=== PATIENT | male | born 1985 | race Caucasian/White ===

== ENCOUNTER 2019-09-25 18:00 | Outpatient (CLI) | payer OTHER | END 2019-09-25 18:01 | disposition home or self-care (01) | LOC: SLEEPLAB 18:00 | PROVIDERS: ATTEND Otolaryngology Plastic Surgery within the Head & Neck | DX: G47.33 Obstructive sleep apnea (adult) (pediatric) (principal); R06.83 Snoring | CPT/HCPCS: 95801 ==

== ENCOUNTER 2019-11-29 06:59 | Day surgery (SDC) | payer OTHER ==
[2019-11-24 13:36] VITALS: BMI 28.1
[2019-11-29] MEDS ORDERED: AFRIN NASAL MIST 15 ML BOT ONE ×3 (07:59→10:15)
[2019-11-29] MEDS ORDERED: Lidocaine 1% w/Epinephrine 1:100K 20 ML VIAL ONE (08:38)
[2019-11-29] MEDS ORDERED: Bacitracin Zinc Ointment 30 gm TUBE ONE (08:38)
[2019-11-29] MEDS ORDERED: Midazolam HCl 2 mg/2 ml Vial ONE (08:39)
[2019-11-29] MEDS ORDERED: HYDROmorphone 0.5 MG/0.5 ML SYRINGE ONE (08:39)
[2019-11-29] MEDS ORDERED: Fentanyl 100 MCG/2 ML VIAL ONE ×2 (08:39→10:40)
[2019-11-29] MEDS ORDERED: methylPREDNISolone Acetate 40 mg/ml Vial ONE (09:26)
[2019-11-29] MEDS ORDERED: Ondansetron PF 4 MG/2 ML Vial ONE (09:54)
[2019-11-29] MEDS ORDERED: Lidocaine 1% PF 5 ML VIAL ONE (09:54)
[2019-11-29] MEDS ORDERED: Dexamethasone 20 MG/5 ML VIAL ONE (09:54)
[2019-11-29] MEDS ORDERED: PROPOFOL 200 MG/20 ML VIAL ONE (09:54)
[2019-11-29] MEDS ORDERED: hydrALAZINE 20 MG/ML VIAL ONE (11:22)
[2019-11-29] MEDS ORDERED: Morphine 2 MG/ML VIAL ONE ×2 (12:52→13:11)
[2019-11-29] MEDS ORDERED: Hydrocodone-Acetamin 15 ML UDCUP ONE (13:30)
--- NOTE | 2019-11-30 08:48 | OP ---
DATE OF PROCEDURE: 11/29/2019 PREOPERATIVE DIAGNOSES: 1. Chronic rhinosinusitis. 2. Nasal polyposis. 3. Nasal septal deviation. 4. Bilateral inferior turbinate hypertrophy. 5. Nasal obstruction. 6. Chronic adenotonsillitis. 7. Adenotonsillar hypertrophy. 8. Uvula hypertrophy. 9. Witnessed apnea. PROCEDURES PERFORMED: 1. Bilateral endoscopic sinus surgery, total ethmoidectomies and sphenoidotomies with removal of tissue. 2. Bilateral endoscopic sinus surgery, maxillary antrostomies with removal of tissue. 3. Right endoscopic sinus surgery, frontal sinus exploration with removal of tissue. 4. Nasal septoplasty. 5. Bilateral inferior turbinate submucosal resection. 6. Tonsillectomy and adenoidectomy. 7. Uvulectomy. ESTIMATED BLOOD LOSS: 20 mL. COMPLICATIONS: None. ANESTHESIA: GETA. DESCRIPTION OF PROCEDURE: TONSILLECTOMY AND ADENOIDECTOMY: After consent was obtained, the patient was identified, brought to the operating room, and placed on the operating table in the supine position. General endotracheal anesthesia and intravenous access were obtained and we proceeded with positioning the patient for oropharyngeal surgery. Oropharyngeal exposure was obtained with a Robbie-Evans mouth gag after a head drape was placed and secured with a towel clip. The Robbie-Evans mouth gag was then suspended from the Madden tray and palatal elevation was achieved with a red rubber catheter. The right tonsil was addressed first. We used a curved Allis to grasp the tonsil and retract it medially as an anterior pillar incision was made. The retrotonsillar fascial plane was then established and blunt dissection was performed with the suction cautery. Blood vessels were anticipated, identified, and cauterized as they were encountered. Ultimately, dissection was carried to the posterior tonsillar pillar mucosa which was incised hemostatically, as well as the base of tongue connection. The tonsil was then passed off as a specimen and bleeding points within the tonsillar bed were cauterized under direct visualization. We subsequently turned our attention to the contralateral side, where using a similar technique, a near identical procedure was performed. Again, the tonsil was grasped and retracted medially with a curved Allis. The retrotonsillar fascial plane was established and while the anterior pillar was retracted medially. The hemostatic blunt dissection of the tonsil with a suction cautery was performed with blood vessels anticipated, identified, and cauterized as they were encountered. Again, dissection continued to the base of tongue and posterior tonsillar pillar mucosa which was incised in a hemostatic fashion. The tonsillar beds were then carefully inspected and bleeding points were identified and cauterized with a suction cautery. After this portion of the procedure, hemostasis was completely obtained. Under direct mirror visualization, we visualized the adenoid pad. Under direct mirror visualization, we removed the bulk of the adenoid tissue with the adenoid curette. We then packed the nasopharynx for an appropriate period of time with [id number] tonsillar sponges. After a period of observation, we removed the pack. Under indirect mirror visualization, we obtained hemostasis and vaporization of residual adenoid tissue with electrocautery. The patient's oral cavity was copiously irrigated with iced saline and subsequently suctioned. After completion of the procedure, the nasal cavity and oropharynx were irrigated and suctioned as were the gastric contents. The patient was then awakened and transferred to the recovery room where the patient remained in stable condition prior to discharge to Day Stay. Following this, the uvula and excessive portions of the soft palate were measured. The excessive portions and the uvula were then resected using the Bovie electrocautery. Mucosal edges were then reapproximated using a 3-0 chromic gut stitch. Following this, the oral cavity was irrigated and orogastric tube was placed and gastric contents were suctioned. NASAL SEPTOPLASTY AND BILATERAL INFERIOR TURBINATE SUBMUCOSAL RESECTION: Patient was taken to the operating room and placed supine on the table. General endotracheal anesthesia was obtained by the anesthesia staff. Then 1% lidocaine with 1:100,000 epinephrine was injected into the nasal septum as well as the inferior turbinates. The patient was prepped and draped in standard surgical fashion. The Afrin pledgets were then removed. A Vik incision was made on the left nasal septum. Submucoperichondrial dissection was performed bilaterally of the deviated portions of the septum, which included the maxillary crest and the crest deviation, as well as the mid portion of the septum. Cartilage and bony deviation were removed, leaving a generous caudal and dorsal strut. Any straight pieces of cartilage were then placed within the cartilage press, pressed, straightened, and then placed between the mucoperichondrial flaps, which were then closed using a 4-0 gut stitch. The inferior turbinates were then punctured with the submucosal Coblation machine, and 3 separate coblations were delivered to the anterior inferior portion of the inferior turbinates. Following this, the nasal cavity was irrigated. All debris was removed. An orogastric tube was placed. Gastric contents and Tapia splints were then placed in the nasal cavity and sutured with a 3-0 silk stitch. Following this, the 0-degree endoscope was advanced into the middle meatus and the middle turbinate was gently medialized. The uncinate process was visualized bilaterally and was anteriorly fractured using a ball-ended probe. Following this, the uncinate process was removed using the 0-degree microdebrider and up-biting Blakesley forceps bilaterally. Following this, the natural maxillary sinus ostia was identified using a ball-ended probe and was gently widened using the 40-degree microdebrider blade and straight Blakesley forceps. Following this, a 40-degree microdebrider was then inserted into the maxillary sinus ostia, where large polyps were encountered and were removed using the curved suction and the 40-degree microdebrider blade bilaterally. Following this, the ethmoidal bulla was identified and was punctured on its medial and inferior aspect using the 0-degree microdebrider and was removed using the microdebrider and Blakesley forceps. Following this, the grand lamella was identified and was punctured into the posterior ethmoidal cells. Working from posterior to anterior, the ethmoidal cells were opened using microdebrider and Blakesley forceps bilaterally. Polypoid tissue and purulence were removed throughout the ethmoidal sinuses. Following this, the anterior wall of the sphenoid sinus was identified through the previous ethmoidectomies and a sphenoidotomy was created using a Shi tip suction bilaterally. Following this, the 0-degree microdebrider was used to widen the sphenoidotomies in a medial and inferior direction bilaterally. Nasal polyps and purulence were removed from the sphenoid sinuses bilaterally. Following this, the 45-degree endoscope was used to visualize the frontal sinus recess bilaterally, which was gently widened with a curved 40-degree microdebrider blade. Following this, the right frontal sinus ostia was identified and was widened using the curved microdebrider blade. Following this, the nasal cavity was irrigated. Nasal pore packing was placed within the middle meatus and Tapia splints were placed and secured. The patient tolerated the procedure well. Job ID: [id number]
== END 2019-11-29 13:50 | disposition home or self-care (01) ==
LOC: SDC 06:59
PROVIDERS: ATTEND Otolaryngology Plastic Surgery within the Head & Neck
PROC: 09BM8ZZ Excision of Nasal Septum, Via Natural or Artificial Opening Endoscopic (ICD-10-PCS; principal; 2019-11-29)
PROC: 09BT8ZZ Excision of Left Frontal Sinus, Via Natural or Artificial Opening Endoscopic (ICD-10-PCS; principal; 2019-11-29)
PROC: 0CTQXZZ Resection of Adenoids, External Approach (ICD-10-PCS; principal; 2019-11-29)
PROC: 099R8ZZ Drainage of Left Maxillary Sinus, Via Natural or Artificial Opening Endoscopic (ICD-10-PCS; principal; 2019-11-29)
PROC: 09BV8ZZ Excision of Left Ethmoid Sinus, Via Natural or Artificial Opening Endoscopic (ICD-10-PCS; principal; 2019-11-29)
PROC: 099W8ZZ Drainage of Right Sphenoid Sinus, Via Natural or Artificial Opening Endoscopic (ICD-10-PCS; principal; 2019-11-29)
PROC: 0CTPXZZ Resection of Tonsils, External Approach (ICD-10-PCS; principal; 2019-11-29)
PROC: 099X8ZZ Drainage of Left Sphenoid Sinus, Via Natural or Artificial Opening Endoscopic (ICD-10-PCS; principal; 2019-11-29)
PROC: 09BS8ZZ Excision of Right Frontal Sinus, Via Natural or Artificial Opening Endoscopic (ICD-10-PCS; principal; 2019-11-29)
PROC: 09BU8ZZ Excision of Right Ethmoid Sinus, Via Natural or Artificial Opening Endoscopic (ICD-10-PCS; principal; 2019-11-29)
PROC: 09BL8ZZ Excision of Nasal Turbinate, Via Natural or Artificial Opening Endoscopic (ICD-10-PCS; principal; 2019-11-29)
PROC: 0CTNXZZ Resection of Uvula, External Approach (ICD-10-PCS; principal; 2019-11-29)
PROC: 099Q8ZZ Drainage of Right Maxillary Sinus, Via Natural or Artificial Opening Endoscopic (ICD-10-PCS; principal; 2019-11-29)
DX: J35.03 Chronic tonsillitis and adenoiditis (principal); K13.79 Other lesions of oral mucosa; J34.2 Deviated nasal septum; J34.3 Hypertrophy of nasal turbinates; J34.89 Other specified disorders of nose and nasal sinuses; J32.9 Chronic sinusitis, unspecified; J33.9 Nasal polyp, unspecified; R06.81 Apnea, not elsewhere classified; Z79.899 Other long term (current) drug therapy
CPT/HCPCS: 88304; J0360; J1100; J1170; J2250; J2270; J2405; J2704; J2920; J3010

== ENCOUNTER 2020-03-18 17:30 | Outpatient (CLI) | payer OTHER | END 2020-03-18 17:31 | disposition home or self-care (01) | LOC: SLEEPLAB 17:30 | PROVIDERS: ATTEND Otolaryngology Plastic Surgery within the Head & Neck | DX: G47.33 Obstructive sleep apnea (adult) (pediatric) (principal); R06.83 Snoring; G47.00 Insomnia, unspecified; Z98.890 Other specified postprocedural states | CPT/HCPCS: 95806 ==